=== PATIENT | female | born 1990 | race Caucasian/White ===

== ENCOUNTER 2020-06-16 14:48 | Emergency (ER) | payer OTHER ==
[~2020-06-16 14:48] MED LIST: IBUPROFEN600 MG PO
[2020-06-16 15:56] LABS: RED BLOOD COUNT 3.85 M/UL (4.00-5.10); WHITE BLOOD COUNT 6.4 K/UL (4.5-11.0)
[2020-06-16 16:21] LABS: BUN/CREATININE RATIO 13 (0-10)
== END 2020-06-16 17:38 | disposition home or self-care (01) ==
LOC: ER1 14:48
PROVIDERS: Physician Assistant Medical
DX: R60.0 Localized edema (principal); F17.210 Nicotine dependence, cigarettes, uncomplicated
CPT/HCPCS: 80053; 85025; 99283

== ENCOUNTER → 2020-08-02 | Outpatient (CLI) | payer OTHER | LOC: US 11:46 | DX: M79.661 Pain in right lower leg (principal) | CPT/HCPCS: 93971 ==